=== PATIENT | female | born 1985 | race Caucasian/White ===

== ENCOUNTER → 2018-01-17 | Outpatient (CLI) | payer BC ==
[~2018-01-17] MED LIST: AMITRIPTYLINE H10 MG PO; MELOXICAM15 MG PO; TIZANIDINE HCL4 M1 PO; TRAMADOL HCL50 MG PO
== END | disposition home or self-care (01) ==
LOC: RAD 13:32
PROC: 3E0R3KZ Introduction of Other Diagnostic Substance into Spinal Canal, Percutaneous Approach (ICD-10-PCS; principal; 2018-01-17)
DX: M50.223 Other cervical disc displacement at C6-C7 level (principal)
CPT/HCPCS: 62302; 72126